=== PATIENT | male | born 1955 | race Caucasian/White ===

== ENCOUNTER 2019-03-10 06:01 | Day surgery (SDC) | payer MEDICARE, OTHER ==
[2019-03-09 15:39] VITALS: BMI 28.0
[2019-03-10] MEDS ORDERED: PROPOFOL 20 ML ONE (07:10)
[2019-03-10 07:17] LABS: #Eosinphils 0.1 thou/uL (0.0-0.7); #Monocytes 0.5 thou/uL (0.11-0.59); #Neutrophils 4.7 thou/uL (1.40-6.50); %Basophils 0.6 % (0.0-1.0); %Eosinophils 0.7 % (0.0-10.0); %Lymphocytes 27.2 % (21.0-51.0); %Monocytes 7.2 % (0.0-10.0); %Neutrophils 64.4 % (42.0-75.0); Hemoglobin 13.3 g/dL (14.0-18.0); Mean Corpuscular HGB CONC 32.9 g/dL (32.0-36.0); Mean Corpuscular Hemoglobin 32.1 pg (27.0-31.0); Mean Corpuscular Volume 97.7 fL (78.0-98.0); Mean Platelet Volume 7.7 fL (7.4-10.4); Platelet Count 169 thou/uL (130-400); RBC Distribution Width 12.2 % (11.5-14.5); Red Blood Cell (RBC) Count 4.15 mill/uL (4.70-6.10); White Blood Cell (WBC) Count 7.4 thou/uL (4.8-10.8)
[2019-03-10] MEDS ORDERED: Lidocaine 2% PF 100 mg/5 ml Syringe ONE (07:22)
[2019-03-10] MEDS ORDERED: PROPOFOL 40 ML ONE (07:22)
[2019-03-10 07:23] LABS: PTT 33.5 SEC (22.9-36.1)
[2019-03-10 07:24] LABS: INR-International Normal Ratio 1.2; Prothrombin Time 14.9 SEC (12.0-14.7)
[2019-03-10 07:44] LABS: Anion Gap 11 mmol/L (10-20); BUN (Urea Nitrogen) 14 mg/dL (8.4-25.7); Calc. Creatinine Clearance 99 mL/min (70-130); Calcium 8.8 mg/dL (7.8-10.44); Carbon Dioxide 24 mmol/L (23-31); Chloride 105 mmol/L (98-107); Estimated GFR-MDRD 84; Glucose 97 mg/dL (80-115); Potassium 3.6 mmol/L (3.5-5.1); Sodium 136 mmol/L (136-145)
[2019-03-10] MEDS ORDERED: Lidocaine 1% PF 5 ML VIAL ONE (14:55)
[2019-03-10] MEDS ORDERED: PROPOFOL 200 MG/20 ML VIAL ONE (14:55)
--- NOTE | 2019-03-13 09:36 | OP ---
DATE OF PROCEDURE: 03/10/2019 PROCEDURE PERFORMED: Direct current cardioversion. SUMMARY: Mr. Frias is a pleasant 64-year-old white gentleman, who comes to the hospital for a planned cardioversion. He has been on Eliquis for a long time without missing any doses and he went into atrial fibrillation recently, which is highly symptomatic. Plan to do a cardioversion only. Anesthesia Department provided with sedation for the patient. Please see their notes for details. After adequate sedation was achieved, one single AICD shock was delivered at 100 joules successfully converting him from AFib into sinus rhythm. The patient tolerated the procedure well. RECOMMENDATIONS: Continue full anticoagulation and antiarrhythmics. Job ID: [id number]
--- NOTE | 2019-03-13 16:41 | EKG ---
Test Reason : PREOP Blood Pressure : / mmHG Vent. Rate : 061 BPM Atrial Rate : 340 BPM P-R Int : 000 ms QRS Dur : 088 ms QT Int : 432 ms P-R-T Axes : 000 017 -06 degrees QTc Int : 434 ms Atrial fibrillation Nonspecific ST abnormality , probably digitalis effect Abnormal ECG Confirmed by KATERIN WEATHRES ([id number]) on 03/13/2019 4:41:26 PM Referred By: CATHI Confirmed By:KATERIN WEATHERS
--- NOTE | 2019-03-13 16:45 | EKG ---
Test Reason : POST CARDIOVERSION Blood Pressure : / mmHG Vent. Rate : 047 BPM Atrial Rate : 047 BPM P-R Int : 328 ms QRS Dur : 088 ms QT Int : 488 ms P-R-T Axes : 028 040 022 degrees QTc Int : 431 ms Marked sinus bradycardia with 1st degree A-V block RSR' or QR pattern in V1 suggests right ventricular conduction delay Septal infarct , age undetermined cannot be excluded Abnormal ECG Confirmed by KATERIN WEATHERS ([id number]) on 03/13/2019 4:45:12 PM Referred By: CATHI Confirmed By:KATERIN WEATHERS
== END 2019-03-10 09:36 | disposition home or self-care (01) ==
LOC: CCL 06:01
PROVIDERS: ATTEND Internal Medicine Cardiovascular Disease
PROC: 5A2204Z Restoration of Cardiac Rhythm, Single (ICD-10-PCS; principal; 2019-03-10)
DX: I48.2 Chronic atrial fibrillation (principal); I63.9 Cerebral infarction, unspecified; D64.9 Anemia, unspecified; I44.0 Atrioventricular block, first degree; I10 Essential (primary) hypertension; E78.5 Hyperlipidemia, unspecified; Z87.891 Personal history of nicotine dependence; Z79.01 Long term (current) use of anticoagulants; Z79.82 Long term (current) use of aspirin; Z79.899 Other long term (current) drug therapy
CPT/HCPCS: 80048; 85025; 85610; 85730; 92960; 93005; 93010; J2001; J2704

== ENCOUNTER 2019-05-26 07:27 | Day surgery (SDC) | payer MEDICARE, OTHER ==
[2019-05-25 13:31] VITALS: BMI 28.8
[2019-05-26 09:40] LABS: #Basophils 0.1 thou/uL (0.0-0.2); #Eosinphils 0.1 thou/uL (0.0-0.7); #Lymphocytes 1.9 thou/uL (1.20-3.40); #Monocytes 0.5 thou/uL (0.11-0.59); %Basophils 0.8 % (0.0-1.0); %Eosinophils 2.2 % (0.0-10.0); %Monocytes 8.1 % (0.0-10.0); Hemoglobin 14.2 g/dL (14.0-18.0); Mean Corpuscular HGB CONC 35.1 g/dL (32.0-36.0); Mean Platelet Volume 8.4 fL (7.4-10.4); Platelet Count 151 thou/uL (130-400); RBC Distribution Width 11.6 % (11.5-14.5); Red Blood Cell (RBC) Count 4.29 mill/uL (4.70-6.10); White Blood Cell (WBC) Count 6.6 thou/uL (4.8-10.8)
[2019-05-26 09:45] LABS: Anion Gap 13 mmol/L (10-20); BUN (Urea Nitrogen) 12 mg/dL (8.4-25.7); Calc. Creatinine Clearance 102 mL/min (70-130); Calcium 8.9 mg/dL (7.8-10.44); Carbon Dioxide 23 mmol/L (23-31); Chloride 106 mmol/L (98-107); Estimated GFR-MDRD 87; Glucose 100 mg/dL (80-115); INR-International Normal Ratio 1.2; PTT 33.8 SEC (22.9-36.1); Potassium 4.9 mmol/L (3.5-5.1); Prothrombin Time 15.2 SEC (12.0-14.7); Sodium 137 mmol/L (136-145)
[2019-05-26] MEDS ORDERED: PROPOFOL 200 MG/20 ML VIAL ONE (10:07)
[2019-05-26] MEDS ORDERED: Lidocaine 1% PF 5 ML VIAL ONE (10:07)
--- NOTE | 2019-05-26 11:35 | OP ---
DATE OF PROCEDURE: 05/26/2019 PROCEDURE PERFORMED: Cardioversion. REASON FOR PROCEDURE: Mr. Frias is a 64-year-old male with history of persistent atrial fibrillation, post pulmonary venous isolation procedure in March 2019, recurrent atrial flutter on chronic flecainide 50 mg twice a day, which was increased to 100 mg twice a day two days prior. Now, he is here for a planned cardioversion. He has been well anticoagulated with continued Eliquis therapy without fail. DESCRIPTION OF PROCEDURE: The patient received propofol by Anesthesia specialist. Initial 70-joule synchronized shock did not convert him back to sinus rhythm. Subsequent 150-joule shock synchronized, converted back to sinus rhythm. The rate and rhythm are sinus bradycardia at 50 beats per minute, marked first degree prolongation is seen at 370 milliseconds, QRS on the other hand is narrow at 92 milliseconds, and QTc is 435. CONCLUSION: 1. Successful cardioversion. 2. First-degree atrioventricular block. We will likely reduce metoprolol dose. Monitor for further bradyarrhythmia. Job ID: [id number]
--- NOTE | 2019-05-28 17:21 | EKG ---
Test Reason : PREOP Blood Pressure : / mmHG Vent. Rate : 060 BPM Atrial Rate : 192 BPM P-R Int : 000 ms QRS Dur : 092 ms QT Int : 438 ms P-R-T Axes : 075 034 -17 degrees QTc Int : 438 ms Atrial tachycardia with block Septal infarct , age undetermined Abnormal ECG When compared with ECG of 25-APR-2019 07:23, (Unconfirmed) Septal infarct is now Present Confirmed by KYREE CONNELLY (2) on 05/28/2019 5:20:45 PM Referred By: ALTHEA Confirmed By:KYREE CONNELLY
--- NOTE | 2019-05-28 17:23 | EKG ---
Test Reason : POST CARDIOVERSION Blood Pressure : / mmHG Vent. Rate : 048 BPM Atrial Rate : 048 BPM P-R Int : 370 ms QRS Dur : 092 ms QT Int : 488 ms P-R-T Axes : 043 021 001 degrees QTc Int : 435 ms Marked sinus bradycardia with 1st degree A-V block Incomplete right bundle branch block Septal infarct (cited on or before 26-MAY-2019) Abnormal ECG When compared with ECG of 26-MAY-2019 08:15, (Unconfirmed) Sinus rhythm is no longer with 2nd degree A-V block (Mobitz I) Confirmed by KYREE CONNELLY (2) on 05/28/2019 5:22:30 PM Referred By: ALTHEA Confirmed By:KYREE CONNELLY
== END 2019-05-26 11:22 | disposition home or self-care (01) ==
LOC: SDC 07:27
PROVIDERS: ATTEND Internal Medicine Cardiovascular Disease
PROC: 5A2204Z Restoration of Cardiac Rhythm, Single (ICD-10-PCS; principal; 2019-05-26)
DX: I48.1 Persistent atrial fibrillation (principal); I48.4 Atypical atrial flutter; I44.0 Atrioventricular block, first degree; I10 Essential (primary) hypertension; F10.11 Alcohol abuse, in remission; E78.5 Hyperlipidemia, unspecified; Z86.73 Personal history of transient ischemic attack (TIA), and cerebral infarction without residual deficits; Z79.01 Long term (current) use of anticoagulants; Z79.82 Long term (current) use of aspirin; Z79.899 Other long term (current) drug therapy; Z98.890 Other specified postprocedural states
CPT/HCPCS: 80048; 85025; 85610; 85730; 92960; 93005; 93010; J2001; J2704

== ENCOUNTER 2020-01-04 06:08 | Outpatient (CLI) | payer MEDICARE, OTHER ==
[2020-01-04 16:01] LABS: Mean Corpuscular HGB CONC 33.3 g/dL (32.0-36.0); Mean Corpuscular Hemoglobin 30.7 pg (27.0-31.0); Mean Corpuscular Volume 92.2 fL (78.0-98.0); Mean Platelet Volume 7.9 fL (7.4-10.4); Platelet Count 183 thou/uL (130-400); RBC Distribution Width 11.6 % (11.5-14.5); Red Blood Cell (RBC) Count 4.23 mill/uL (4.70-6.10); White Blood Cell (WBC) Count 6.3 thou/uL (4.8-10.8)
[2020-01-04 16:09] LABS: INR-International Normal Ratio 1.2; PTT 34.3 SEC (22.9-36.1); Prothrombin Time 14.9 sec (12.0-14.7)
[2020-01-04 16:20] LABS: Anion Gap 8 mmol/L (10-20); BUN (Urea Nitrogen) 15 mg/dL (8.4-25.7); Calc. Creatinine Clearance 0 mL/min (70-130); Calcium 8.9 mg/dL (7.8-10.44); Carbon Dioxide 28 mmol/L (23-31); Chloride 104 mmol/L (98-107); Estimated GFR-MDRD 75; Glucose 88 mg/dL (80-115); Potassium 4.1 mmol/L (3.5-5.1); Sodium 136 mmol/L (136-145)
[2020-01-05 11:42] LABS: SARS-CoV-2 MS2 Positive; SARS-CoV-2 N Gene Negative; SARS-CoV-2 S Gene Negative; SARS-CoV-2 orf1ab Negative
--- NOTE | 2020-01-07 16:18 | EKG ---
Test Reason : Blood Pressure : / mmHG Vent. Rate : 069 BPM Atrial Rate : 276 BPM P-R Int : 000 ms QRS Dur : 076 ms QT Int : 344 ms P-R-T Axes : -43 052 -11 degrees QTc Int : 368 ms Atrial flutter with 4:1 A-V conduction RSR' or QR pattern in V1 suggests right ventricular conduction delay Septal infarct (cited on or before 26-MAY-2019) Abnormal ECG When compared with ECG of 26-MAY-2019 10:03, Atrial flutter has replaced Sinus rhythm Nonspecific T wave abnormality now evident in Lateral leads QT has shortened Confirmed by KYREE CONNELLY (2) on 01/07/2020 4:18:12 PM Referred By: JOYCE Confirmed By:KYREE CONNELLY
== END 2020-01-04 06:09 | disposition home or self-care (01) ==
LOC: LABBT 06:08
PROVIDERS: ATTEND Specialist
DX: Z01.818 Encounter for other preprocedural examination (principal); Z11.59 Encounter for screening for other viral diseases; I48.91 Unspecified atrial fibrillation
CPT/HCPCS: 80048; 85027; 85610; 85730; 93005; U0003; 87635; 93010

== ENCOUNTER 2020-01-09 06:02 | Observation (INO) | payer MEDICARE, OTHER ==
[2020-01-09] MEDS ORDERED: Isoproterenol 0.2 MG/1 ML AMP ONE (07:13)
[2020-01-09] MEDS ORDERED: Heparin 10,000 UNITS/1 ML VIAL ONE ×2 (07:13→09:44)
[2020-01-09] MEDS ORDERED: SUGAMMADEX SODIUM 200 MG/2 ML VIAL ONE (07:31)
[2020-01-09] MEDS ORDERED: Rocuronium Bromide 50 MG/5 ML VIAL ONE ×2 (07:31→07:32)
[2020-01-09] MEDS ORDERED: Fentanyl 100 MCG/2 ML VIAL ONE (07:31)
[2020-01-09] MEDS ORDERED: Protamine Sulfate 50 MG/5 ML VIAL ONE (10:30)
[2020-01-09] MEDS ORDERED: PROPOFOL 200 MG/20 ML VIAL ONE (11:36)
[2020-01-09] MEDS ORDERED: Ondansetron PF 4 MG/2 ML Vial ONE (11:36)
[2020-01-09] MEDS ORDERED: Dexamethasone 20 MG/5 ML VIAL ONE (11:36)
[2020-01-09] MEDS ORDERED: Rocuronium Bromide 10 MG/ML (10ML VIAL) ONE (11:36)
[2020-01-09] MEDS ORDERED: diphenhydrAMINE 50 MG/ML VIAL ONE (11:36)
[2020-01-09 15:38] VITALS: BMI 32.1
--- NOTE | 2020-01-09 15:49 | OP ---
DATE OF PROCEDURE: 01/09/2020 PREOPERATIVE DIAGNOSIS: Atypical atrial flutter and atrial fibrillation, persistent. PROCEDURE IN DETAIL: The patient came to the EP lab in the postabsorptive state. Informed consent was obtained. A time-out was called. The patient was sedated by member of the anesthesia staff. Once the patient was adequately sedated, the right and left femoral regions as well as the jugular region were prepped and draped in the usual sterile fashion. Using a modified Seldinger technique and with ultrasound-guided access, access was obtained x2 in the right femoral vein, x1 in the left femoral vein, and x1 in the right internal jugular vein. The patient had been on Eliquis continuously. A duo-Deca catheter was placed from the right internal jugular vein with the distal 10 poles into the coronary sinus for left atrial pacing and recording. An ICE catheter intracardiac echo was placed from the left femoral vein to the right atrium for intraprocedural guidance and the two 8-Turkmen sheaths were exchanged for a long sheath for transseptal puncture. Transseptal puncture was guided by intracardiac echo. During this, heparin was given by bolus to maintain an ACT of 350 seconds or above. A Carto 3D electroanatomical map was created of the left atrium using a circular mapping 10 pole catheter. This demonstrated previous areas of ablation as well as areas of interest for the flutter. Entrainment mapping was also utilized by pacing in the left atrium. Pacing in the left ventricle was also performed. The flutter ultimately was terminated in the anterior wall of the left atrium between the right-sided veins and the left atrial appendage. The 2nd flutter with a different cycle lengths, the initial flutter had a cycle length of approximately 200 second flutter, it was approximately double bath with a different activation sequence, it was also all occurred spontaneously immediately after termination of the initial flutter. This one was also terminated in the similar area. After both of these flutters terminated, a bolus of isoproterenol was given. The veins were confirmed to be silent as was the posterior wall, and therefore, catheters were removed, sheaths removed, and His signal was obtained. The HV interval was 50 milliseconds. Postablation cycle length was 680, GA 190, QRS 92, and QT 400. Catheters removed. Sheaths were removed. Hemostasis was obtained by placement of Vascade devices in the groin as well as manual pressure in the neck. The patient tolerated the procedure well and was awoken from anesthetic without any difficulty. PROCEDURES PERFORMED: 1. Radiofrequency ablation for atrial fibrillation. 2. Additional ablation after pulmonary vein isolation. 3. Ablation of atrial flutter x2. 4. 3D electroanatomical mapping. 5. Transseptal puncture. 6. Isoproterenol infusion. 7. Pacing in the left atrium. 8. Pacing in the left ventricle. COMPLICATIONS: None acute. ESTIMATED BLOOD LOSS: Less than 30 mL. CONCLUSIONS: 1. Successful isolation of recovered pulmonary vein (right inferior pulmonary vein). 2. Successful additional ablation of left atrium. 3. Successful ablation of atrial flutters x2. RECOMMENDATIONS: The patient will be at bed rest. He will follow up with Dr. Lee. He may require antiarrhythmic drugs in the future. He will continue anticoagulant therapy indefinitely. ADDENDUM: The right inferior pulmonary vein was ablated and isolated immediately after creating a 3D electroanatomical map and prior to ablation of the left atrial flutters. Additional radiofrequency ablation in the posterior wall was also performed at that point and then after that left atrial ablation to ablate the atypical atrial flutters was performed as described in the original operative note. Job ID: [id number]
--- NOTE | 2020-01-09 20:24 | EKG ---
Test Reason : POST ABLATION Blood Pressure : / mmHG Vent. Rate : 081 BPM Atrial Rate : 081 BPM P-R Int : 240 ms QRS Dur : 080 ms QT Int : 382 ms P-R-T Axes : 051 022 004 degrees QTc Int : 443 ms Sinus rhythm with 1st degree A-V block Nonspecific T wave abnormality Abnormal ECG When compared with ECG of 04-JAN-2020 15:43, Sinus rhythm has replaced Atrial flutter QT has lengthened Confirmed by MARKO SHAIKH, DR. Singh ([id number]) on 01/09/2020 8:23:28 PM Referred By: JOYCE Confirmed By:DR. Francisco ZHU MD
[2020-01-09] MEDS: Apixaban 5 MG TAB PO SCH (20:27)
[2020-01-09] MEDS: Metoprolol Tartrate 25 MG TAB PO SCH (20:27)
[2020-01-09] MEDS ORDERED: Atorvastatin Calcium 10 MG TAB PO SCH (21:00)
[2020-01-10] MEDS ORDERED: Acetaminophen 325 MG TAB PO PRN (08:08)
[2020-01-10] MEDS: Apixaban 5 MG TAB PO SCH (08:52)
[2020-01-10] MEDS: Metoprolol Tartrate 25 MG TAB PO SCH (08:52)
[2020-01-10] MEDS ORDERED: Folic Acid 1 MG TAB PO SCH (09:00)
[2020-01-10] MEDS ORDERED: Cyanocobalamin (Vitamin B-12) 1,000 MCG TAB PO SCH (09:00)
[2020-01-10] MEDS ORDERED: Prevnar 13-Val Conj/PF 0.5 ML SYRINGE IM ONE (09:00)
[2020-01-10] MEDS ORDERED: Loratadine 10 MG TAB PO SCH (09:00)
[2020-01-10] MEDS ORDERED: Thiamine 100 MG TAB PO SCH (09:00)
[2020-01-10] MEDS ORDERED: Aspirin 81 mg Enteric Coated Tablet PO SCH (09:00)
[2020-01-10] MEDS ORDERED: Allopurinol 100 MG TAB PO SCH (09:00)
[2020-01-10 12:58] VITALS: BP 172/92; TEMP 98.2
[2020-01-10] MEDS ORDERED: Flecainide 50 MG TAB PO SCH (21:00)
--- NOTE | 2020-01-11 05:24 | DIS ---
DATE OF ADMISSION: 01/09/2020 DATE OF DISCHARGE: 01/10/2020 DIAGNOSIS: Persistent atrial fibrillation. ADMITTING PHYSICIAN: Mary Correa MD DISCHARGING PHYSICIAN: Jose Antonio Lee MD PROCEDURE PERFORMED: Includes 3-dimensional mapping, intracardiac echo, left atrial ablation, re-isolation of the right inferior pulmonary vein, ablation of 2 separate flutters, additional flutter was mapped in the left atrial appendage and may require ablation in the future. COMPLICATIONS: None. RECOMMENDATIONS: Continue anticoagulation therapy indefinitely for an elevated CHADS-VASc score. Resume antiarrhythmic therapy with flecainide. SUBJECTIVE: Mr. Frias is a 64-year-old gentleman, known to our practice for history of persistent atrial arrhythmias. He underwent PVI on 04/24/2019, and experienced early recurrence requiring initiation of flecainide, which was eventually refractory to 100 mg p.o. b.i.d. He is consistently inadequately anticoagulated with Eliquis. He is feeling well. He denies any heart racing, palpitations, chest pain or pressure, syncope, near syncope, stroke, stroke-like symptoms, bleeding at the groin site, appetite changes, nausea, vomiting, shortness of breath, or difficulty urinating. REVIEW OF SYSTEMS: An 8-point review of systems is negative except that listed above. OBJECTIVE: VITAL SIGNS: Temperature 98.2 degrees Fahrenheit, pulse 73, blood pressure 165/83, respirations 16, and oxygen 97% on room air. GENERAL: The patient is alert and oriented. Speech is clear. Affect is appropriate. He is in no apparent distress at the time of the exam. NECK: Supple without jugular venous distention. HEART: Rate is irregularly irregular with crisp S1 and S2. LUNGS: Clear to auscultation bilaterally without wheezes, crackles, or rhonchi. Respirations are even and unlabored with good bilateral excursion. ABDOMEN: Bilateral groin sites are stable without evidence of bleeding or a hematoma complication as well as right EJ access point. EXTREMITIES: Warm and dry to touch without clubbing, cyanosis, or edema. NEUROLOGIC: Grossly intact and at baseline though the patient has had a stroke in the past and has underlying cognitive difficulties. DIAGNOSTIC STUDIES: Telemetry and EKG largely showed sinus rhythm, but he is having recurrent atrial flutter and some atrial fibrillation that is seen. PLAN: 1. Persistent atrial fibrillation status post redo ablation with early recurrence of paroxysmal atrial flutter/atrial fibrillation. 2. Hypertension. 3. Anticoagulation with Eliquis. We will resume his home medications, increasing his metoprolol to address his moderate hypertension and also resuming flecainide to manage his rhythm during the acute recovery phase. Anticipating discontinuing flecainide at 3 months postablation if no persisting arrhythmias are suspected and instructed him to watch his blood pressure at home. If he is consistently greater than 140/90, he needs to contact his managing editor for blood pressure guidance. He will contact our office with any postablation concerns as they arise and follow up in 6 weeks or sooner if symptoms dictate. CONDITION AT DISCHARGE: Stable. DISCHARGE MEDICATIONS: 1. Cozaar 50 mg daily. 2. Allopurinol 100 mg daily. 3. Aspirin 81 mg daily. 4. Eliquis 5 mg b.i.d. 5. B12 two tabs daily. 6. Lipitor 10 mg daily. 7. Folvite 1 mg daily. 8. Zyrtec 10 mg daily. 9. Thiamine 50 mg daily. Discontinuing metoprolol tartrate. New medications: 1. Metoprolol succinate 50 mg daily. 2. Pantoprazole 40 mg daily. 3. Flecainide 100 mg p.o. q.12 hours. 4. Furosemide 40 mg p.o. p.r.n. edema, to be taken with potassium chloride 20 mEq p.o. DISCHARGE INSTRUCTIONS: No lifting more than 10 to 15 pounds and light activity for 1 week. After that time, he may resume activities gradually as tolerated. Contact our office with any postablation concerns and follow up in 6 weeks. Job ID: [id number]
== END 2020-01-10 15:15 | disposition home or self-care (01) ==
LOC: CCL 06:02 → 2NO 09:01
PROVIDERS: ADMIT Specialist; ATTEND Specialist
PROC: 02583ZZ Destruction of Conduction Mechanism, Percutaneous Approach (ICD-10-PCS; principal; 2020-01-09)
PROC: 02K83ZZ Map Conduction Mechanism, Percutaneous Approach (ICD-10-PCS; 2020-01-09)
DX: I48.19 Other persistent atrial fibrillation (principal); I48.4 Atypical atrial flutter; Z79.82 Long term (current) use of aspirin; Z79.899 Other long term (current) drug therapy
CPT/HCPCS: 76942; 85347 ×2; 93005; 93613; 93622; 93623; 93656; 93657; 93662; C1731; C1759; C1769; G0378 ×2; 93010; J1100; J1200; J1644; J2405; J2704; J2720; J3010

== ENCOUNTER 2023-02-08 05:57 | Day surgery (SDC) | payer MEDICARE, OTHER ==
[2023-02-04 12:46] VITALS: BMI 32.3
[2023-02-04 13:51] LABS: Hemoglobin 13.7 g/dL (13.5-17.5); Mean Corpuscular HGB CONC 32.6 g/dL (32.0-36.0); Mean Corpuscular Hemoglobin 28.9 pg (27.0-33.0); Mean Corpuscular Volume 88.6 fl (81.2-95.1); Platelet Count 215 10x3/uL (150-450); RBC Distribution Width 14.1 % (11.5-14.5); Red Blood Cell (RBC) Count 4.74 10x6/uL (4.32-5.72); White Blood Cell (WBC) Count 6.9 10x3/uL (3.5-10.5)
[2023-02-04 13:58] LABS: PTT 29.7 sec (22.0-33.0); Prothrombin Time 11.1 sec (9.5-12.1)
[2023-02-04 14:10] LABS: Anion Gap 13 mmol/L (10-20); BUN (Urea Nitrogen) 15 mg/dL (8.4-25.7); Calc. Creatinine Clearance 89 mL/min (70-130); Calcium 9.3 mg/dL (7.8-10.44); Carbon Dioxide 27 mmol/L (23-31); Chloride 103 mmol/L (98-107); Estimated GFR 81; Glucose 115 mg/dL (80-115); Potassium 4.1 mmol/L (3.5-5.1); Sodium 139 mmol/L (136-145)
[2023-02-08] MEDS ORDERED: Lidocaine 1% (PF) 30 ML VIAL ONE (06:56)
[2023-02-08] MEDS ORDERED: Isoproterenol 0.2 MG/1 ML AMP ONE (06:56)
[2023-02-08] MEDS ORDERED: Heparin 10,000 UNITS/ 10 ML VIAL ONE ×2 (06:56→10:09)
[2023-02-08] MEDS ORDERED: fentaNYL 50 mcg/mL 1 mL Vial ONE (08:27)
[2023-02-08] MEDS ORDERED: PHENYLEPHRINE-NS 100 MCG/ML 10 ML SYRINGE ONE (08:29)
[2023-02-08] MEDS ORDERED: Lidocaine 1% PF 5 ML VIAL ONE (08:29)
[2023-02-08] MEDS ORDERED: Rocuronium Bromide 10 MG/ML (10ML VIAL) ONE (08:29)
[2023-02-08] MEDS ORDERED: PROPOFOL 200 MG/20 ML VIAL ONE (08:29)
[2023-02-08] MEDS ORDERED: Dexamethasone 20 MG/5 ML VIAL ONE (08:29)
[2023-02-08] MEDS ORDERED: Ondansetron PF 4 MG/2 ML Vial ONE ×2 (08:29→12:14)
[2023-02-08] MEDS ORDERED: Heparin 25,000 units/D5W 0 ML ONE (09:17)
[2023-02-08] MEDS ORDERED: SUGAMMADEX SODIUM 200 MG/2 ML VIAL ONE (10:10)
[2023-02-08] MEDS ORDERED: Phenylephrine 10 MG/ML VIAL ONE (10:13)
[2023-02-08] MEDS ORDERED: Protamine Sulfate 50 MG/5 ML VIAL ONE (10:31)
[2023-02-08] MEDS ORDERED: Furosemide 20 MG/2 ML VIAL ONE (11:27)
[2023-02-08] MEDS ORDERED: Potassium Chloride 20 MEQ TAB PO SCH (12:00)
[2023-02-08] MEDS ORDERED: Furosemide 20 MG/2 ML VIAL SLOW IVP SCH (12:00)
== END 2023-02-08 15:05 | disposition home or self-care (01) ==
LOC: SDC 05:57
PROVIDERS: ATTEND Specialist
DX: I48.4 Atypical atrial flutter (principal); I48.19 Other persistent atrial fibrillation; I47.1 Supraventricular tachycardia; E78.5 Hyperlipidemia, unspecified; I10 Essential (primary) hypertension; D64.9 Anemia, unspecified; Z86.73 Personal history of transient ischemic attack (TIA), and cerebral infarction without residual deficits; Z79.01 Long term (current) use of anticoagulants; Z79.82 Long term (current) use of aspirin; Z79.899 Other long term (current) drug therapy; Z88.2 Allergy status to sulfonamides
CPT/HCPCS: 80048; 85027; 85347 ×2; 85610; 85730; 93005 ×2; 93623; 93655; 93656; 93657; C1732; C1759; C1760; C1884; C1894 ×3; J3010; 93010; J0153; J1100; J1644; J1940; J2001; J2370; J2405; J2704; J2720

== ENCOUNTER 2023-06-04 11:30 | Inpatient (IN) | payer MEDICARE, OTHER ==
[2023-06-04 12:46] VITALS: BMI 33.9
[2023-06-04 13:15] LABS: Hemoglobin 13.5 g/dL (13.5-17.5); Mean Corpuscular HGB CONC 32.9 g/dL (32.0-36.0); Mean Corpuscular Hemoglobin 28.1 pg (27.0-33.0); Mean Corpuscular Volume 85.4 fl (81.2-95.1); Platelet Count 249 10x3/uL (150-450); RBC Distribution Width 13.7 % (11.5-14.5); White Blood Cell (WBC) Count 10.7 10x3/uL (3.5-10.5)
[2023-06-04 13:30] LABS: PTT 27.6 sec (22.0-33.0); Prothrombin Time 10.9 sec (9.5-12.1)
[2023-06-04 13:31] LABS: ALT (SGPT) 24 U/L (8-55); AST (SGOT) 18 U/L (5-34); Albumin 4.4 g/dL (3.4-4.8); Alkaline Phosphatase 67 U/L (40-110); Anion Gap 14 mmol/L (10-20); BUN (Urea Nitrogen) 17 mg/dL (8.4-25.7); Bilirubin, Total 0.6 mg/dL (0.2-1.2); Calc. Creatinine Clearance 90 mL/min (70-130); Calcium 8.9 mg/dL (7.8-10.44); Carbon Dioxide 24 mmol/L (23-31); Chloride 104 mmol/L (98-107); Estimated GFR 78; Globulin 3.3 g/dL (2.4-3.5); Glucose 120 mg/dL (80-115); Potassium 4.3 mmol/L (3.5-5.1); Protein, Total 7.7 g/dL (5.8-8.1); Sodium 138 mmol/L (136-145)
[2023-06-04 14:28] LABS: Bilirubin Neg (Negative); Blood, Urine Negative (Negative); Clarity Clear (Clear); Glucose, Urine (Dipstick) Normal (Negative); Ketone, Urine Negative (Negative); Leukocyte Negative (Negative); Nitrite Negative (Negative); Protein, Urine (Dipstick) 15 mg/dl (Neg-Trace); Urobilinogen Normal mg/dL (Less than 2)
[2023-06-09] MEDS ORDERED: Heparin 10,000 UNITS/ 10 ML VIAL ONE (06:38)
[2023-06-09] MEDS ORDERED: CEFAZOLIN 2 GM VIAL ONE (06:38)
[2023-06-09] MEDS ORDERED: Protamine Sulfate 50 MG/5 ML VIAL ONE (06:38)
[2023-06-09] MEDS ORDERED: SUGAMMADEX SODIUM 200 MG/2 ML VIAL ONE (06:55)
[2023-06-09] MEDS ORDERED: fentaNYL 50 mcg/mL 1 mL Vial ONE (06:55)
[2023-06-09] MEDS ORDERED: Norepinephrine 4 MG/4 ML VIAL ONE (06:55)
[2023-06-09] MEDS ORDERED: PROPOFOL 200 MG/20 ML VIAL ONE (08:15)
[2023-06-09] MEDS ORDERED: Rocuronium Bromide 10 MG/ML (10ML VIAL) ONE (08:15)
[2023-06-09] MEDS ORDERED: Lidocaine 1% PF 5 ML VIAL ONE (08:15)
[2023-06-09] MEDS ORDERED: Dexamethasone 20 MG/5 ML VIAL ONE (08:15)
[2023-06-09] MEDS ORDERED: Ondansetron PF 4 MG/2 ML Vial ONE (08:15)
[2023-06-09] MEDS ORDERED: Iopamidol 370 76% 100 ML VIAL ONE (11:01)
== END 2023-06-09 15:20 | disposition home or self-care (01) | DRG 274 ==
LOC: SURG A 06-09 06:33
PROVIDERS: ADMIT Internal Medicine Cardiovascular Disease; ATTEND Internal Medicine Cardiovascular Disease
PROC: 02L73DK Occlusion of Left Atrial Appendage with Intraluminal Device, Percutaneous Approach (ICD-10-PCS; principal; 2023-06-09)
PROC: B24BZZ4 Ultrasonography of Heart with Aorta, Transesophageal (ICD-10-PCS; 2023-06-09)
PROC: 3E033XZ Introduction of Vasopressor into Peripheral Vein, Percutaneous Approach (ICD-10-PCS; 2023-06-09)
DX: I48.0 Paroxysmal atrial fibrillation (principal); Z00.6 Encounter for examination for normal comparison and control in clinical research program; Z98.890 Other specified postprocedural states; Z79.899 Other long term (current) drug therapy
CPT/HCPCS: 33340; 80053; 81003; 85027; 85347; 85610; 85730; 86850; 86900; 86901; 93005; 93010; 93306; 93312; C1759; C1760; C1894; J1100; J1644; J2405; J2704; J2720; J3010; Q9967

== ENCOUNTER 2023-07-26 06:45 | Day surgery (SDC) | payer MEDICARE, OTHER ==
[2023-07-20 10:54] VITALS: BMI 32.6
[2023-07-20 13:01] LABS: Hematocrit 42.6 % (38.8-50.0); Hemoglobin 13.7 g/dL (13.5-17.5); Mean Corpuscular HGB CONC 32.2 g/dL (32.0-36.0); Mean Corpuscular Hemoglobin 27.7 pg (27.0-33.0); Mean Corpuscular Volume 86.2 fl (81.2-95.1); Mean Platelet Volume 10.3 fl (7.4-10.4); Platelet Count 235 10x3/uL (150-450); RBC Distribution Width 14.7 % (11.5-14.5); Red Blood Cell (RBC) Count 4.94 10x6/uL (4.32-5.72)
[2023-07-20 13:49] LABS: PTT 29.6 sec (22.0-33.0); Prothrombin Time 10.9 sec (9.5-12.1)
[2023-07-20 14:25] LABS: Anion Gap 15 mmol/L (10-20); BUN (Urea Nitrogen) 14 mg/dL (8.4-25.7); Calc. Creatinine Clearance 91 mL/min (70-130); Calcium 9.2 mg/dL (7.8-10.44); Carbon Dioxide 26 mmol/L (23-31); Chloride 100 mmol/L (98-107); Estimated GFR 76; Glucose 110 mg/dL (80-115); Potassium 4.6 mmol/L (3.5-5.1); Sodium 136 mmol/L (136-145)
[2023-07-26] MEDS ORDERED: PROPOFOL 200 MG/20 ML VIAL ONE (08:27)
[2023-07-26] MEDS ORDERED: Lidocaine 1% PF 5 ML VIAL ONE (08:27)
== END 2023-07-26 09:42 | disposition home or self-care (01) ==
LOC: SDC 06:45
PROVIDERS: ATTEND Internal Medicine Cardiovascular Disease
PROC: B245ZZ4 Ultrasonography of Left Heart, Transesophageal (ICD-10-PCS; principal; 2023-07-26)
DX: I48.19 Other persistent atrial fibrillation (principal)
CPT/HCPCS: 80048; 85027; 85610; 85730; 93312; J2704

== ENCOUNTER 2024-06-26 09:35 | Outpatient (CLI) | payer MEDICARE, OTHER ==
[2024-06-26 10:40] LABS: #Basophils 0.05 10x3/uL (0.0-0.2); %Basophils 0.8 % (0.0-1.0); %Eosinophils 0.8 % (0.0-10.0); %Lymphocytes 22.7 % (21.0-51.0); %Monocytes 8.8 % (0.0-10.0); %Neutrophils 66.4 % (42.0-75.0); Hematocrit 41.9 % (42.0-52.0); Hemoglobin 13.7 g/dL (14.0-18.0); Mean Corpuscular HGB CONC 32.7 g/dL (32.0-36.0); Mean Corpuscular Hemoglobin 29.5 pg (27.0-31.0); Mean Corpuscular Volume 90.1 fL (78.0-98.0); Mean Platelet Volume 9.6 fL (7.4-10.4); Platelet Count 212 10x3/uL (130-400); Red Blood Cell (RBC) Count 4.65 mill/uL (4.70-6.10)
[2024-06-26 10:55] LABS: INR-International Normal Ratio 1.2
[2024-06-26 10:56] LABS: PTT 32.7 sec (22.9-36.1)
[2024-06-26 10:57] LABS: Anion Gap 11 mmol/L (10-20); BUN (Urea Nitrogen) 13 mg/dL (8.4-25.7); Calc. Creatinine Clearance 0 mL/min (70-130); Calcium 8.6 mg/dL (7.8-10.44); Carbon Dioxide 27 mmol/L (23-31); Chloride 98 mmol/L (98-107); Estimated GFR 91; Glucose 109 mg/dL (80-115); Sodium 132 mmol/L (136-145)
== END 2024-06-26 09:36 | disposition home or self-care (01) ==
LOC: LABBT 09:35
PROVIDERS: ATTEND Internal Medicine Cardiovascular Disease
DX: Z01.812 Encounter for preprocedural laboratory examination (principal); I48.19 Other persistent atrial fibrillation
CPT/HCPCS: 80048; 85025; 85610; 85730

== ENCOUNTER 2024-06-28 06:08 | Day surgery (SDC) | payer MEDICARE, OTHER ==
[2024-06-26 09:57] VITALS: BMI 30.5
[2024-06-28] MEDS ORDERED: Heparin 10,000 UNITS/ 10 ML VIAL ONE (06:44)
[2024-06-28] MEDS ORDERED: Heparin 25,000 units/D5W 500 ML ONE (06:44)
[2024-06-28] MEDS ORDERED: Isoproterenol 0.2 MG/1 ML AMP ONE (07:12)
[2024-06-28] MEDS ORDERED: Ondansetron PF 4 MG/2 ML Vial ONE (08:34)
[2024-06-28] MEDS ORDERED: Dexamethasone 20 MG/5 ML VIAL ONE (08:34)
[2024-06-28] MEDS ORDERED: Rocuronium Bromide 10 MG/ML (10ML VIAL) ONE (08:34)
[2024-06-28] MEDS ORDERED: PROPOFOL 20 ML ONE (08:35)
[2024-06-28] MEDS ORDERED: fentaNYL 50 mcg/mL 1 mL Vial ONE (08:35)
[2024-06-28] MEDS ORDERED: SUGAMMADEX SODIUM 200 MG/2 ML VIAL ONE (11:16)
[2024-06-28] MEDS ORDERED: PHENYLEPHRINE-NS 100 MCG/ML 10 ML SYRINGE ONE (11:17)
[2024-06-28] MEDS ORDERED: Protamine Sulfate 50 MG/5 ML VIAL ONE (11:21)
== END 2024-06-28 16:13 | disposition home or self-care (01) ==
LOC: SDC 06:08
PROVIDERS: ATTEND Internal Medicine Cardiovascular Disease
PROC: 02583ZZ Destruction of Conduction Mechanism, Percutaneous Approach (ICD-10-PCS; principal; 2024-06-28)
PROC: 4A023N7 Measurement of Cardiac Sampling and Pressure, Left Heart, Percutaneous Approach (ICD-10-PCS; 2024-06-28)
DX: I48.91 Unspecified atrial fibrillation (principal); I48.4 Atypical atrial flutter; I10 Essential (primary) hypertension; E78.5 Hyperlipidemia, unspecified; Z95.818 Presence of other cardiac implants and grafts; Z86.73 Personal history of transient ischemic attack (TIA), and cerebral infarction without residual deficits; Z98.890 Other specified postprocedural states; Z79.82 Long term (current) use of aspirin; Z79.01 Long term (current) use of anticoagulants; Z79.899 Other long term (current) drug therapy
CPT/HCPCS: 85347 ×2; 92960; 93005; 93462; 93622; 93623; 93653; 93655; 93662; C1732 ×2; C1759; C1760; C1884; C1893; C1894 ×2; J1100; J1644 ×2; J2405; J2704; J2720; J3010; C1730